=== PATIENT | male | born 1945 | race Caucasian/White ===

== ENCOUNTER 2016-03-31 12:34 | Outpatient (CLI) | payer MEDICARE | END 2016-03-31 12:35 | disposition home or self-care (01) | DX: M25.562 Pain in left knee (principal) ==

== ENCOUNTER 2016-04-10 08:27 | Outpatient (CLI) | payer MEDICARE | END 2016-04-10 08:28 | disposition home or self-care (01) | DX: M46.07 Spinal enthesopathy, lumbosacral region (principal); M51.26 Other intervertebral disc displacement, lumbar region; M51.36 Other intervertebral disc degeneration, lumbar region; M16.12 Unilateral primary osteoarthritis, left hip; M47.9 Spondylosis, unspecified; M77.8 Other enthesopathies, not elsewhere classified ==

== ENCOUNTER 2016-04-10 09:13 | Outpatient (CLI) | payer MEDICARE | END 2016-04-10 09:14 | disposition home or self-care (01) | DX: M19.072 Primary osteoarthritis, left ankle and foot (principal) ==

== ENCOUNTER 2016-04-30 10:41 | Outpatient (CLI) | payer MEDICARE | END 2016-04-30 10:42 | disposition home or self-care (01) | DX: M16.12 Unilateral primary osteoarthritis, left hip (principal); M24.852 Other specific joint derangements of left hip, not elsewhere classified; R60.0 Localized edema ==

== ENCOUNTER 2016-08-16 08:04 | Emergency (ER) | payer MEDICARE ==
[2016-08-16] MEDS ORDERED: ONDANSETRON 4 MG/2 ML VIAL IVP STA (08:21)
[2016-08-16] MEDS ORDERED: MORPHINE 2 MG/ML SYRINGE IVP STA ×3 (08:21→10:10)
[2016-08-16] MEDS ORDERED: ASPIRIN CHEW 81 MG TABLET PO STA (08:21)
[2016-08-16] MEDS ORDERED: NITROGLYCERIN SL 0.4 MG TABLET SL STA ×2 (08:21→08:48)
--- NOTE | 2016-08-16 08:26 | ED Physician Documentation ---
PD HPI CHEST PAIN - Stated complaint Stated Complaint: CHEST PAIN - Chief complaint Chief Complaint: Cardiac - Additional information Additional information: hx from pt 70 male hx aortic valve replacement [facility] 2013 and RCA stent at [place] in [place] 5 yr ago also HTN lipids DM chest pain for 4 days, jaw, ant jaw line, ant neck and left arm pain and left upper back + soa and diaphoresis no NV no abd pain no leg swelling Review of Systems Constitutional: reports: Sweats. denies: Fever, Chills Cardiac: reports: Chest pain / pressure Respiratory: reports: Dyspnea GI: denies: Vomiting Musculoskeletal: denies: Extremity swelling Endocrine: denies: Easy bruising / bleeding Immunocompromised: denies: Immunocompromised PD PAST MEDICAL HISTORY - Present Medications Home Medications: Ambulatory Orders Medication Instructions Recorded Confirmed Aspirin [Adult Low Dose Aspirin EC] 81 mg PO DAILY 08/16/16 08/16/16 Atorvastatin [Lipitor] 0 mg PO DAILY 08/16/16 08/16/16 Losartan [Cozaar] 0 mg PO DAILY 08/16/16 08/16/16 Metoprolol Tartrate 0 mg PO DAILY 08/16/16 08/16/16 Syring-Needl,Disp,Insul,0.3 ml 0 units SQ DAILY 08/16/16 08/16/16 [Insulin Syringe] metFORMIN [Glucophage] 0 mg PO DAILY 08/16/16 08/16/16 - Allergies Allergies/Adverse Reactions: Allergies Allergy/AdvReac Type Severity Reaction Status Date / Time No Known Drug Allergies Allergy Verified 08/16/16 08:12 PD ED PE NORMAL - Vitals Vital signs reviewed: Yes - General General: Alert and oriented X 3 - HEENT HEENT: PERRL - Neck Neck: Supple, no meningeal sign - Cardiac Cardiac: RRR. No: No murmur (+ murmur not new per pt) - Respiratory Respiratory: No respiratory distress, Clear bilaterally - Abdomen Abdomen: Soft, Non tender - Derm Derm: Normal color - Extremities Extremities: No deformity, No edema - Neuro Neuro: Alert and oriented X 3 Results - Vitals Vitals: Vital Signs - 24 hr 08/16/16 08/16/16 08/16/16 08:10 08:30 08:50 Temperature 36.6 C Heart Rate 79 89 76 Respiratory 14 15 15 Rate Blood Pressure 179/90 H 177/87 H 82/45 L O2 Saturation 100 95 92 06/18/17 06/18/17 06/18/17 08:54 08:56 08:57 Temperature Heart Rate 71 76 78 Respiratory 16 16 16 Rate Blood Pressure 82/45 L 92/55 L 103/67 O2 Saturation 94 91 L 95 08/16/16 08/16/16 08/16/16 09:03 09:18 09:41 Temperature Heart Rate 77 69 71 Respiratory 16 16 16 Rate Blood Pressure 151/87 H 155/80 H 165/88 H O2 Saturation 97 98 97 08/16/16 10:00 Temperature Heart Rate 76 Respiratory 16 Rate Blood Pressure 144/92 H O2 Saturation 97 Oxygen O2 Source Nasal cannula Oxygen Flow Rate 2 - EKG (time done) 0833 Rate: Rate (enter#) (83) Rhythm: NSR Intervals: Normal OK Ischemia: ST elevation c/w ischemia (inferior), Q waves (developing inferior Q waves) Compare to prior EKG: Old EKG unavailable - Labs Labs: Laboratory Tests 08/16/16 08/16/16 08/16/16 08:30 08:30 08:30 WBC 7.9 RBC 5.70 Hgb 16.1 Hct 47.5 MCV 83.3 MCH 28.3 MCHC 34.0 RDW 12.9 Plt Count 133 MPV 9.4 Neut # 5.2 Lymph # 1.7 [place] # 0.6 Eos # 0.3 Baso # 0.1 Absolute Nucleated RBC 0.00 Nucleated RBCs 0.0 Sodium 135 Potassium 3.9 Chloride 99 L Carbon Dioxide 24 Anion Gap 12.0 BUN 23 H Creatinine 1.1 Estimated GFR (MDRD) 66 L Glucose 330 H Calcium 9.7 Total Bilirubin 1.3 H AST 28 ALT 34 Alkaline Phosphatase 52 Troponin I 0.04 Total Protein 7.5 Albumin 4.1 Globulin 3.4 Albumin/Globulin Ratio 1.2 Lipase 29 - Rads (name of study) CXR Radiology: See rad report (prior sternotomy for valve, aortic knob tight, no cap or effusion) PD MEDICAL DECISION MAKING - ED course ED course: subacute inferior STEMI -4 days of sx - developing Q waves called [facility] where pt cardio group is Dr Starkey accepts, [facility] en route pt given asa nitro morphine zofran lopressor heparin (after CXR - pt with aortic valve repair inc risk for dissection) given inf STEMI, rechecked pt after one nitro (still having pain and still very hypertensive and HR 90) gave lopressor and rechecked pt (still hypertensive HR 80s still having pain) gave 2nd nitro and BP dropped to 82 - gave IVF and held further nitro and lopressor - pt recovered quickly and BP 152 now [facility] en route blood sugar noted - pt did not take meds today - will recheck after IVF labs resulted shortly prior to departure - surprisingly trop is neg - but sx are very c/w ACS and EKG does show ST elev - no cardio services or even stress testing available at [facility] at this time, 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
[2016-08-16] MEDS ORDERED: MORPHINE 2 MG/ML SYRINGE ONE ×3 (08:29→10:07)
[2016-08-16] MEDS ORDERED: ASPIRIN CHEW 81 MG TABLET ONE (08:29)
[2016-08-16] MEDS ORDERED: NITROGLYCERIN SL 0.4 MG TABLET SL ONE (08:30)
[2016-08-16] MEDS ORDERED: ONDANSETRON 4 MG/2 ML VIAL ONE (08:30)
[2016-08-16] MEDS ORDERED: METOPROLOL 5 MG/5 ML VIAL IVP ONE (08:33)
[2016-08-16] MEDS ORDERED: METOPROLOL 5 MG/5 ML VIAL IVP STA (08:35)
[2016-08-16] MEDS ORDERED: HEPARIN 25,000 UNITS/500 ML 500 ML IV STA (08:39)
[2016-08-16] MEDS ORDERED: HEPARIN 5,000 UNIT/ML VIAL IVP ONE (08:39)
[2016-08-16] MEDS ORDERED: HEPARIN 25,000 UNITS/500 ML 500 ML IV ONE (08:43)
[2016-08-16] MEDS ORDERED: HEPARIN 5,000 UNIT/ML VIAL ONE (08:43)
[2016-08-16 08:45] LABS: BASOPHILS # (AUTO) 0.1 10^3/uL (0.0-0.1); EOSINOPHILS # (AUTO) 0.3 10^3/uL (0.0-0.7); HGB - HEMOGLOBIN 16.1 g/dL (14.0-18.0); LYMPHOCYTES # (AUTO) 1.7 10^3/uL (1.5-3.5); MEAN CORPUSCULAR HEMOGLOBIN 28.3 pg (27.0-31.0); MONOCYTES # (AUTO) 0.6 10^3/uL (0.0-1.0); NEUTROPHILS # (AUTO) 5.2 10^3/uL (1.5-6.6); UNCORRECTED WHITE BLOOD COUNT 7.9 x10^3/uL; WHITE BLOOD COUNT 7.9 x10^3/uL (4.8-10.8)
[2016-08-16 08:48] LABS: BASOPHILS % (AUTO) 1.2 %; EOSINOPHILS % (AUTO) 3.4 %; HCT - HEMATOCRIT 47.5 % (42.0-52.0); LYMPHOCYTES % (AUTO) 21.5 %; MEAN CORPUSCULAR VOLUME 83.3 fL (80.0-94.0); MEAN PLATELET VOLUME 9.4 fL (7.4-11.4); MONOCYTES % (AUTO) 7.9 %; RED CELL DISTRIBUTION WIDTH 12.9 % (12.0-15.0)
[2016-08-16 08:51] LABS: ALBUMIN/GLOBULIN RATIO 1.2 (1.0-2.2); BILIRUBIN,TOTAL 1.3 mg/dL (0.2-1.0); CALCIUM 9.7 mg/dL (8.5-10.3); CREATININE 1.1 mg/dL (0.6-1.2); POTASSIUM 3.9 mmol/L (3.5-5.0); TOTAL PROTEIN 7.5 g/dL (6.7-8.2)
[2016-08-16] MEDS ORDERED: SODIUM CHLORIDE 0.9% 1,000 ML IV ONE (08:52)
--- NOTE | 2016-08-16 08:54 | XRAY Preliminary Report ---
Exam: XR Chest 1 View IMPRESSION: New borderline to mild cardiomegaly without new pulmonary opacity or acute cardiopulmonar y process visualized. [facility] SITE ID: [id number]
--- NOTE | 2016-08-16 08:56 | XRAY Report ---
EXAM: CHEST RADIOGRAPHY EXAM DATE: 08/16/2016 08:39 AM. CLINICAL HISTORY: Chest pain for 5 days COMPARISON: 12/26/2015. TECHNIQUE: 1 view. FINDINGS: Lungs/Pleura: No new focal opacities evident. No pleural effusion. No pneumothorax. The slightly elev ated right hemidiaphragm is again noted, similar to the prior exam. Mediastinum: New borderline to mild cardiomegaly. Other: Status post sternotomy again noted. IMPRESSION: New borderline to mild cardiomegaly without new pulmonary opacity or acute cardiopulmonar y process visualized. [facility] Referring Provider Line: [phone] SITE ID: [id number]
[2016-08-16 10:05] VITALS: BP 144/92
== END 2016-08-16 10:19 | disposition short-term general hospital (02) ==
LOC: ED 08:04
DX: I21.3 ST elevation (STEMI) myocardial infarction of unspecified site (principal); I10 Essential (primary) hypertension; Z95.2 Presence of prosthetic heart valve; Z79.82 Long term (current) use of aspirin; E11.9 Type 2 diabetes mellitus without complications; Z79.84 Long term (current) use of oral hypoglycemic drugs
CPT/HCPCS: 36415; 71010; 80053; 83690; 84484; 85025; 93005; 96374; 96375; 96376; 99284; 99285; A9270

== ENCOUNTER 2016-08-16 10:22 | Outpatient (CLI) | payer MEDICARE | END 2016-08-16 10:23 | disposition short-term general hospital (02) | LOC: EMS 10:22 | PROVIDERS: ATTEND Surgery | DX: I21.3 ST elevation (STEMI) myocardial infarction of unspecified site (principal) | CPT/HCPCS: A0425; A0427 ==

== ENCOUNTER 2018-05-29 10:03 | Emergency (ER) | payer MEDICARE ==
--- NOTE | 2018-05-29 10:21 | ED Physician Documentation ---
PD HPI FOCAL NEURO - Stated complaint Stated Complaint: POSS STROKE - Chief complaint Chief Complaint: Neuro - History obtained from History obtained from: Patient - History of Present Illness Timing - onset: Today, Last night (He awoke during the night to go the bathroom and did drink a glass of water and felt that he was unable to swallow appropriately and dribbled from the left side of his mouth. He denied any trouble walking or holding the cup. This morning when awoke he noticed the left side of his face was droopy and weak and he is unable to whistle or puff his cheeks symmetrically. Still did not notice any weakness of his arm or leg.) Timing - duration: Hours Timing - details: Gradual onset, Still present Weakness: Face, Left. No: Arm, Hand, Leg, Foot Numbness: No: Face, Arm, Hand, Leg, Foot Associated symptoms: Headache (some on left for 2-3 days). No: Nausea / vomiting, Syncope Contributing factors: positive: Other (has family in [place] and visited there last summer, with some hiking but no camping. Did not have to pull ticks off nor have any unexplained rash.). negative: Anticoagulated Baseline status: positive: A&OX3, ambulatory, indep Similar symptoms before: Has not had sx before Recently seen: Not recently seen Review of Systems Constitutional: denies: Fever, Chills, Myalgias Nose: denies: Rhinorrhea / runny nose, Congestion Skin: denies: Rash Musculoskeletal: reports: Extremity pain (left anterior thigh down to knee for many months.). denies: Joint pain PD PAST MEDICAL HISTORY - Past Medical History Cardiovascular: Hypertension, High cholesterol, [place], Valve disorder Endocrine/Autoimmune: Type 2 diabetes - Past Surgical History Past Surgical History: Yes Cardiovascular: Coronary stent - Present Medications Home Medications: Ambulatory Orders Medication Instructions Recorded Confirmed Aspirin [Adult Low Dose Aspirin EC] 81 mg PO DAILY 08/16/16 08/16/16 Atorvastatin [Lipitor] 40 mg PO DAILY 08/16/16 08/16/16 Losartan [Cozaar] 0 mg PO BID 08/16/16 08/16/16 Metoprolol Tartrate 50 mg PO BID 08/16/16 08/16/16 Syring-Needl,Disp,Insul,0.3 ml 0 units SQ DAILY 08/16/16 08/16/16 [Insulin Syringe] metFORMIN [Glucophage] 500 mg PO DAILY 08/16/16 08/16/16 Acyclovir 400 mg PO 5XD #25 tablet 05/29/18 Clopidogrel [Plavix] 75 mg PO DAILY 05/29/18 Dexamethasone [Decadron] 4 mg PO DAILY #5 tablet 05/29/18 amLODIPine [Norvasc] 0 mg 05/29/18 - Allergies Allergies/Adverse Reactions: Allergies Allergy/AdvReac Type Severity Reaction Status Date / Time No Known Drug Allergies Allergy Verified 05/29/18 10:09 - Social History Does the pt smoke?: No Smoking Status: Never smoker PD ED PE NORMAL - Vitals Vital signs reviewed: Yes - General General: Alert and oriented X 3, No acute distress, Well developed/nourished - HEENT HEENT: Ears normal, Moist mucous membranes, Pharynx benign, Other - Neck Neck: Supple, no meningeal sign, No adenopathy, No bruit - Cardiac Cardiac: RRR, No murmur - Respiratory Respiratory: Clear bilaterally - Abdomen Abdomen: Soft, Non tender - Derm Derm: Normal color, Warm and dry - Extremities Extremities: No tenderness to palpate, Normal ROM s pain - Neuro Neuro: Alert and oriented X 3, No sensory deficit, Normal speech. No: skeiner 2-12 intact (left facial weakness with slight persistent eye opening when closes eye. There is weakness of the forehead as well on the left with less prominent forehead creases on left.) Results - Vitals Vitals: Vital Signs - 24 hr 05/29/18 05/29/18 05/29/18 10:06 10:38 10:59 Temperature 36.0 C L Heart Rate 86 79 86 Respiratory 20 17 Rate Blood Pressure 162/87 H 155/83 H O2 Saturation 98 96 97 05/29/18 05/29/18 05/29/18 12:09 12:39 12:48 Temperature 36.7 C 36.3 C L Heart Rate 88 86 88 Respiratory 18 21 Rate Blood Pressure 133/89 H 139/95 H 139/95 H O2 Saturation 95 99 95 Oxygen O2 Source Room air - Labs Labs: Laboratory Tests 05/29/18 05/29/18 05/29/18 10:25 10:25 10:25 WBC 7.7 RBC 5.38 Hgb 16.3 Hct 44.7 MCV 83.2 MCH 29.5 MCHC 35.6 RDW 14.2 Plt Count 160 MPV 9.2 Neut # (Auto) 4.9 Lymph # (Auto) 1.9 [place] # (Auto) 0.6 Eos # (Auto) 0.3 Baso # (Auto) 0.1 Absolute Nucleated RBC 0.01 Nucleated RBC % 0.1 ESR 4 Sodium 130 L Potassium 4.2 Chloride 96 L Carbon Dioxide 25 Anion Gap 9.0 BUN 19 Creatinine 0.6 Estimated GFR (MDRD) 132 Glucose 340 H Calcium 9.5 Magnesium Total Bilirubin 0.8 AST 32 ALT 28 Alkaline Phosphatase 54 Total Protein 6.5 L Albumin 4.2 Globulin 2.5 Albumin/Globulin Ratio 1.7 Lipase 54 H 05/29/18 10:25 WBC RBC Hgb Hct MCV MCH MCHC RDW Plt Count MPV Neut # (Auto) Lymph # (Auto) [place] # (Auto) Eos # (Auto) Baso # (Auto) Absolute Nucleated RBC Nucleated RBC % ESR Sodium Potassium Chloride Carbon Dioxide Anion Gap BUN Creatinine Estimated GFR (MDRD) Glucose Calcium Magnesium 2.4 Total Bilirubin AST ALT Alkaline Phosphatase Total Protein Albumin Globulin Albumin/Globulin Ratio Lipase - Rads (name of study) head CT Radiology: Prelim report reviewed (clinically c/w facial nerve weakness. He has some headache on left, so got CT to eval for structure issues such as tumor, bleeding. Was not evaluating for vascular so did not do angio/etc. ) PD MEDICAL DECISION MAKING - ED course Complexity details: considered differential (left facial weakness only, with forehead involvement c/w facial nerve paresis. ), d/w patient Departure - Departure Disposition: 01 Home, Self Care Clinical Impression: Facial nerve palsy Condition: Stable Record reviewed to determine appropriate education?: Yes Instructions: ED [place] Palsy Follow-Up: Idris Guillermo MD [Primary Care Provider] - Prescriptions: Acyclovir 400 mg PO 5XD #25 tablet Dexamethasone [Decadron] 4 mg PO DAILY #5 tablet Comments: Stay well-hydrated. Continue usual medications. Take the Decadron steroid anti-inflammatory to reduce inflammation of the nerve. Check your sugars twice daily. If you find him going to high (mid 300s or 400s) then stop the steroids and that should correct over a day or so. If sugars will be a little higher than your usual on the steroids. They do provide benefit but I would stop them if your sugars are going too high. 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 Take acyclovir as directed for 5 days. The Lyme test is still pending and will result in a couple of days. Have your primary care follow-up on it. the natural progression for facial palsy will be persistence or increasing over a few days and may take several weeks to fully resolve. Hopefully yours will be shorter than that. You may need to use some eye moisturizing ointment or drops if your eye does not close completely. Modify your diet intake as needed for troubles sleeping and chewing. Discharge Date/Time: 05/29/18 12:50
[2018-05-29 11:30] LABS: BASOPHILS # (AUTO) 0.1 10^3/uL (0.0-0.1); BASOPHILS % (AUTO) 1.2 %; EOSINOPHILS # (AUTO) 0.3 10^3/uL (0.0-0.7); EOSINOPHILS % (AUTO) 3.5 %; HGB - HEMOGLOBIN 16.3 g/dL (14.0-18.0); LYMPHOCYTES # (AUTO) 1.9 10^3/uL (1.5-3.5); LYMPHOCYTES % (AUTO) 24.6 %; MEAN CORPUSCULAR VOLUME 83.2 fL (80.0-94.0); MEAN PLATELET VOLUME 9.2 fL (7.4-11.4); MONOCYTES # (AUTO) 0.6 10^3/uL (0.0-1.0); MONOCYTES % (AUTO) 7.8 %; NEUTROPHILS # (AUTO) 4.9 10^3/uL (1.5-6.6); NEUTROPHILS % (AUTO) 62.9 %; PLT - PLATELET COUNT 160 10^3/uL (130-450); RED BLOOD COUNT 5.38 10^6/uL (4.70-6.10); RED CELL DISTRIBUTION WIDTH 14.2 % (12.0-15.0); WHITE BLOOD COUNT 7.7 x10^3/uL (4.8-10.8)
--- NOTE | 2018-05-29 11:53 | CT Report ---
Reason: left facial weakness today Procedure Date: 05/29/2018 Accession Number: [id number] / [id number] Procedure: CT - HEAD WO CPT Code: FULL RESULT: EXAM: CT HEAD EXAM DATE: 05/29/2018 11:11 AM. CLINICAL HISTORY: Left facial weakness today. COMPARISON: None. TECHNIQUE: Multiaxial CT images were obtained from the foramen magnum to the vertex. Reformats: Sagittal and coronal. IV contrast: None. In accordance with CT protocol optimization, one or more of the following dose reduction techniques were utilized for this exam: automated exposure control, adjustment of mA and/or KV based on patient size, or use of iterative reconstructive technique. FINDINGS: The bilateral mastoid air cells are normally aerated. The imaged portions of the paranasal sinuses are normally aerated. There is no acute fracture of the calvaria. There is a punctate focus of calcification within the left central sulcus likely reflecting a small area of calcific plaquing. The mckeon-white differentiation remains distinct. There is enlargement of the lateral ventricles and the third ventricle, but not out of proportion to the concomitant enlargement of the cerebral sulci. There is a mild to moderate degree of generalized volume loss. IMPRESSION: 1. There is no acute intracranial abnormality. 2. There is mild to moderate generalized volume loss and mild chronic small-vessel ischemia. If the patient has persistent symptoms and further evaluation is desired, it can be obtained with MRI of the brain without contrast, as CT can be insensitive during the early stages of cerebral infarction.
[2018-05-29 12:05] LABS: MEAN CORPUSCULAR HEMOGLOBIN 29.5 pg (27.0-31.0); MEAN CORPUSCULAR HGB CONC 35.6 g/dL (32.0-36.0)
[2018-05-29 12:08] LABS: ALBUMIN 4.2 g/dL (3.2-5.5); ALBUMIN/GLOBULIN RATIO 1.7 (1.0-2.2); BILIRUBIN,TOTAL 0.8 mg/dL (0.2-1.0); CALCIUM 9.5 mg/dL (8.5-10.3); CREATININE 0.6 mg/dL (0.6-1.2); TOTAL PROTEIN 6.5 g/dL (6.7-8.2)
[2018-05-29] MEDS ORDERED: ACYCLOVIR 200 MG CAPSULE PO STA (12:34)
[2018-05-29] MEDS ORDERED: DEXAMETHASONE 10 MG/ML VIAL IVP STA (12:34)
[2018-05-29 12:40] VITALS: BP 139/95
[2018-06-02 16:02] LABS: 18 KD (IGG) BAND NON-REACTIVE; 23 KD (IGG) BAND NON-REACTIVE; 23 KD (IGM) BLOT NON-REACTIVE; 28 KD (IGG) BAND NON-REACTIVE; 30 KD (IGG) BAND NON-REACTIVE; 39 KD (IGG) BAND NON-REACTIVE; 39 KD (IGM) BLOT NON-REACTIVE; 41 KD (IGG) BAND REACTIVE; 41 KD (IGM) BLOT NON-REACTIVE; 45 KD (IGG) BAND NON-REACTIVE; 58 KD (IGG) BAND NON-REACTIVE; 66 KD (IGG) BAND REACTIVE; 93 KD (IGG) BAND REACTIVE
== END 2018-05-29 12:50 | disposition home or self-care (01) ==
LOC: ED 10:03
DX: G51.0 Bell's palsy (principal); I10 Essential (primary) hypertension; E11.9 Type 2 diabetes mellitus without complications; Z79.84 Long term (current) use of oral hypoglycemic drugs; Z79.02 Long term (current) use of antithrombotics/antiplatelets; Z79.82 Long term (current) use of aspirin
CPT/HCPCS: 36415; 70450; 80053; 83690; 83735; 85025; 85651; 86617; 93005; 96374; 99283; 99284; A9270

== ENCOUNTER 2019-01-30 10:57 | Outpatient (CLI) | payer MEDICARE ==
--- NOTE | 2019-01-30 13:20 | XRAY Report ---
Reason: SHORTNESS OF BREATH Procedure Date: 01/30/2019 Accession Number: [id number] / [id number] Procedure: XR - Chest 2 View X-Ray CPT Code: 93585 Final Report FULL RESULT: EXAM: CHEST RADIOGRAPHY EXAM DATE: 01/30/2019 11:13 AM. CLINICAL HISTORY: SHORTNESS OF BREATH. COMPARISON: 08/16/2016. TECHNIQUE: 2 views. FINDINGS: Lungs/Pleura: No focal opacities evident. No pleural effusion. No pneumothorax. Normal volumes. Mediastinum: Post sternotomy wires again noted. Heart and mediastinal contours are unremarkable. Other: Minimal elevation of the right hemidiaphragm, stable. IMPRESSION: No acute process. [facility]
== END 2019-01-30 10:58 | disposition home or self-care (01) ==
LOC: DI 10:57
PROVIDERS: ATTEND Physician Assistant
DX: R06.02 Shortness of breath (principal)
CPT/HCPCS: 71046

== ENCOUNTER 2019-04-21 17:23 | Emergency (ER) | payer MEDICARE ==
[2019-04-21 17:47] LABS: BASOPHILS # (AUTO) 0.1 10^3/uL (0.0-0.1); BASOPHILS % (AUTO) 1.4 %; EOSINOPHILS # (AUTO) 0.4 10^3/uL (0.0-0.7); EOSINOPHILS % (AUTO) 4.8 %; HGB - HEMOGLOBIN 16.7 g/dL (14.0-18.0); LYMPHOCYTES # (AUTO) 2.1 10^3/uL (1.5-3.5); MEAN CORPUSCULAR HEMOGLOBIN 29.6 pg (27.0-31.0); MEAN CORPUSCULAR HGB CONC 34.9 g/dL (32.0-36.0); MEAN CORPUSCULAR VOLUME 84.8 fL (80.0-94.0); MONOCYTES # (AUTO) 0.6 10^3/uL (0.0-1.0); NEUTROPHILS # (AUTO) 4.5 10^3/uL (1.5-6.6); NEUTROPHILS % (AUTO) 58.5 %; PLT - PLATELET COUNT 162 10^3/uL (130-450); RED BLOOD COUNT 5.65 10^6/uL (4.70-6.10); RED CELL DISTRIBUTION WIDTH 13.1 % (12.0-15.0); WHITE BLOOD COUNT 7.6 x10^3/uL (4.8-10.8)
[2019-04-21 18:10] LABS: ALBUMIN 4.4 g/dL (3.2-5.5); ALBUMIN/GLOBULIN RATIO 1.5 (1.0-2.2); BILIRUBIN,TOTAL 0.7 mg/dL (0.2-1.0); CALCIUM 10.1 mg/dL (8.5-10.3); CREATININE 1.2 mg/dL (0.6-1.2); TOTAL PROTEIN 7.4 g/dL (6.7-8.2)
[2019-04-21] MEDS ORDERED: ASPIRIN CHEW 81 MG TABLET PO STA (18:51)
--- NOTE | 2019-04-21 18:51 | XRAY Report ---
Reason: Chest pain Procedure Date: 04/21/2019 Accession Number: [id number] / [id number] Procedure: XR - Chest 1 View X-Ray CPT Code: 46467 Final Report FULL RESULT: EXAM: CHEST RADIOGRAPHY EXAM DATE: 04/21/2019 06:18 PM. CLINICAL HISTORY: Chest pain. COMPARISON: CHEST 2 VIEW 01/30/2019 11:01 AM. TECHNIQUE: 1 view. FINDINGS: Lungs/Pleura: No focal opacities evident. No pleural effusion. No pneumothorax. Mediastinum: Status post CABG with stable postsurgical changes in cardiomediastinal silhouette. Within exam limitations, the cardiomediastinal contour is normal. Other: None. IMPRESSION: No acute cardiopulmonary process. [facility]
--- NOTE | 2019-04-21 18:54 | ED Physician Documentation ---
History of Present Illness - Stated complaint Stated Complaint: CP - Chief complaint Chief Complaint: Cardiac - History obtained from History obtained from: Patient - History of Present Illness Timing: Today, How many hours ago (2) Pain level max: 4 Pain level now: 3 - Additonal information Additional information: 73-year-old male presents the emergency department with chest pain intermittently for the past 2 weeks. He states it is normally exertional and resolves with rest, however today the chest pain has been constant for the past 2 hours. Nothing makes it better or worse. Feels like a pressure. Nonradiating. Slightly short of breath. Slightly dizzy. No nausea or vomiting. Does not take nitroglycerin at home. His last cardiac stent was in December at [facility] in [place] with Dr. Mei. Review of Systems Ten Systems: 10 systems reviewed and negative Constitutional: denies: Fever, Chills Nose: denies: Rhinorrhea / runny nose, Congestion Throat: denies: Sore throat Cardiac: denies: Palpitations Respiratory: denies: Cough GI: denies: Vomiting, Diarrhea : denies: Dysuria Skin: denies: Rash Musculoskeletal: denies: Neck pain, Back pain Neurologic: denies: Headache PD PAST MEDICAL HISTORY - Past Medical History Cardiovascular: Hypertension, High cholesterol, [place], Valve disorder Endocrine/Autoimmune: Type 2 diabetes - Past Surgical History Past Surgical History: Yes Cardiovascular: Coronary stent - Present Medications Home Medications: Ambulatory Orders Medication Instructions Recorded Confirmed Aspirin [Adult Low Dose Aspirin EC] 81 mg PO DAILY 08/16/16 04/21/19 Atorvastatin [Lipitor] 40 mg PO DAILY 08/16/16 04/21/19 Losartan [Cozaar] 0 mg PO BID 08/16/16 04/21/19 Metoprolol Tartrate 50 mg PO BID 08/16/16 04/21/19 metFORMIN [Glucophage] 500 mg PO DAILY 08/16/16 04/21/19 Clopidogrel [Plavix] 75 mg PO DAILY 05/29/18 04/21/19 Insulin 70/30 Human [Humulin 70-30 0 unit 04/21/19 Vial] - Allergies Allergies/Adverse Reactions: Allergies Allergy/AdvReac Type Severity Reaction Status Date / Time No Known Drug Allergies Allergy Verified 04/21/19 17:31 - Social History Does the pt smoke?: No Smoking Status: Never smoker Does the pt drink ETOH?: No - Immunizations Immunizations are current?: Yes - POLST Patient has POLST: No PD ED PE NORMAL - Vitals Vital signs reviewed: Yes - General General: Alert and oriented X 3, No acute distress, Well developed/nourished - HEENT HEENT: PERRL, Moist mucous membranes - Neck Neck: Supple, no meningeal sign - Cardiac Cardiac: RRR, No murmur, Strong equal pulses - Respiratory Respiratory: No respiratory distress, Clear bilaterally - Abdomen Abdomen: Soft, Non tender, Non distended - Derm Derm: Warm and dry, No rash - Extremities Extremities: No edema, No calf tenderness / cord - Neuro Neuro: Alert and oriented X 3 - Psych Psych: Normal mood, Normal affect Results - Vitals Vitals: Vital Signs - 24 hr 04/21/19 04/21/19 04/21/19 17:31 19:20 19:57 Temperature 36.7 C 36.5 C Heart Rate 83 80 68 Respiratory 16 19 21 Rate Blood Pressure 170/80 H 162/79 H 122/70 O2 Saturation 96 93 94 04/21/19 20:32 Temperature 36.7 C Heart Rate 69 Respiratory 15 Rate Blood Pressure 141/80 H O2 Saturation 96 Oxygen O2 Source Room air - EKG (time done) 1735 Rate: Rate (enter#) (72) Rhythm: NSR [place]: Normal Intervals: Normal CA QRS: Normal Ischemia: Q waves, Non specific changes Computer interpretation: Agree with computer - Labs Labs: Laboratory Tests 04/21/19 04/21/19 04/21/19 17:44 17:44 17:44 WBC 7.6 RBC 5.65 Hgb 16.7 Hct 47.9 MCV 84.8 MCH 29.6 MCHC 34.9 RDW 13.1 Plt Count 162 MPV 11.0 Neut # (Auto) 4.5 Lymph # (Auto) 2.1 [place] # (Auto) 0.6 Eos # (Auto) 0.4 Baso # (Auto) 0.1 Absolute Nucleated RBC 0.00 Nucleated RBC % 0.0 Sodium 135 Potassium 3.9 Chloride 100 L Carbon Dioxide 25 Anion Gap 10.0 BUN 27 H Creatinine 1.2 Estimated GFR (MDRD) 59 L Glucose 246 H Calcium 10.1 Magnesium Total Bilirubin 0.7 AST 26 ALT 33 Alkaline Phosphatase 43 Troponin I High Sens 37.0 H* B-Natriuretic Peptide Total Protein 7.4 Albumin 4.4 Globulin 3.0 Albumin/Globulin Ratio 1.5 Lipase 49 04/21/19 04/21/19 04/21/19 17:44 17:44 19:04 WBC RBC Hgb Hct MCV MCH MCHC RDW Plt Count MPV Neut # (Auto) Lymph # (Auto) [place] # (Auto) Eos # (Auto) Baso # (Auto) Absolute Nucleated RBC Nucleated RBC % Sodium Potassium Chloride Carbon Dioxide Anion Gap BUN Creatinine Estimated GFR (MDRD) Glucose Calcium Magnesium 2.5 Total Bilirubin AST ALT Alkaline Phosphatase Troponin I High Sens 33.4 H* B-Natriuretic Peptide 122 H Total Protein Albumin Globulin Albumin/Globulin Ratio Lipase - Rads (name of study) cxr Radiology: Prelim report reviewed, EMP read contemporaneously, See rad report (No acute cardiopulmonary process. ) PD MEDICAL DECISION MAKING - ED course Complexity details: reviewed results, re-evaluated patient, considered differential, d/w patient, d/w design center consultant ED course: 73-year-old male presents to the emergency department with concern for unstable and accelerating angina based on history. Discussed the case with Dr. Redd, cardiology at [facility] in [place] who recommends heparin drip and transfer to the hospitalist for further evaluation. Discussed the case with Dr. Bradford, hospitalist at [facility] who graciously accepts in transfer. Patient is pain-free after single nitroglycerin here. Maintained on a heparin drip. Last cardiac stent was December 2018. COBRA forms completed This document was made in part using voice recognition software. While efforts are made to proofread this document, sound alike and grammatical errors may occur. Departure - Departure Disposition: 02 Transfer Acute Care Hosp Clinical Impression: Unstable angina Condition: Stable
[2019-04-21] MEDS: NITROGLYCERIN SL 0.4 MG TABLET SL STA ×2 (19:10→19:20)
[2019-04-21] MEDS ORDERED: HEPARIN 25000UNITS/500ML (D5W) 25,000 UNIT/500 ML BAG IV STA (20:25)
[2019-04-21] MEDS ORDERED: HEPARIN 5,000 UNIT/ML VIAL IVP STA (20:25)
[2019-04-21 22:36] VITALS: BP 163/90
== END 2019-04-21 22:37 | disposition short-term general hospital (02) ==
LOC: ED 17:23
DX: I25.110 Atherosclerotic heart disease of native coronary artery with unstable angina pectoris (principal); I10 Essential (primary) hypertension; E78.00 Pure hypercholesterolemia, unspecified; I38 Endocarditis, valve unspecified; E11.9 Type 2 diabetes mellitus without complications; Z95.5 Presence of coronary angioplasty implant and graft; I25.2 Old myocardial infarction; Z79.82 Long term (current) use of aspirin; Z79.4 Long term (current) use of insulin
CPT/HCPCS: 36415; 71045; 80053; 83690; 83735; 83880; 84484; 85025; 93005; 96374; 99285; A9270

== ENCOUNTER 2019-04-21 22:49 | Outpatient (CLI) | payer MEDICARE | END 2019-04-21 22:50 | disposition short-term general hospital (02) | LOC: EMS 22:49 | PROVIDERS: ATTEND Surgery | DX: R07.9 Chest pain, unspecified (principal) | CPT/HCPCS: A0425; A0426 ==

== ENCOUNTER 2020-09-03 08:58 | Outpatient (CLI) | payer MEDICARE ==
--- NOTE | 2020-09-03 10:01 | XRAY Report ---
PROCEDURE: Chest 2 View X-Ray INDICATIONS: ATHSCL HEART DISEASE OF [place] CORONARY ARTERY W/O TECHNIQUE: 2 view(s) of the chest. COMPARISON: None. FINDINGS: Surgical changes and devices: Median sternotomy changes. Lungs and pleura: No pleural effusions or pneumothorax. Lungs are clear. Mediastinum: Mediastinal contours are normal. Heart size is normal. Bones and chest wall: No suspicious bony abnormalities. Soft tissues appear unremarkable. IMPRESSION: No acute cardiopulmonary process demonstrated radiographically. Reviewed by: Travon Whiting MD on 09/03/2020 10:00 AM PDT Approved by: Travon Whiting MD on 09/03/2020 10:00 AM PDT Station ID: [id number]
== END 2020-09-03 08:59 | disposition home or self-care (01) ==
LOC: DI 08:58
PROVIDERS: ATTEND Internal Medicine Cardiovascular Disease
DX: R06.00 Dyspnea, unspecified (principal); I25.10 Atherosclerotic heart disease of native coronary artery without angina pectoris

== ENCOUNTER 2023-08-10 11:41 | Outpatient (CLI) | payer MEDICARE ==
--- NOTE | 2023-08-10 13:04 | XRAY Report ---
PROCEDURE: Chest 2V INDICATIONS: CORONARY ARTERY DISEASE INVOLCING [place] HEART TECHNIQUE: 2 views of the chest were acquired. COMPARISON: 09/03/2020 FINDINGS: Surgical changes and devices: Sternotomy wires and aortic valve device Lungs and pleura: Low lung volumes. No dense consolidation or pleural effusion Mediastinum: Normal heart size Bones and chest wall: Degenerative changes IMPRESSION: No acute radiographic abnormality. Reviewed by: Timothy Polanco MD on 08/10/2023 1:03 PM PDT Approved by: Timothy Polanco MD on 08/10/2023 1:03 PM PDT Station ID: [id number]
== END 2023-08-10 11:42 | disposition home or self-care (01) ==
LOC: DI 11:41
PROVIDERS: ATTEND Internal Medicine Cardiovascular Disease
DX: I25.10 Atherosclerotic heart disease of native coronary artery without angina pectoris (principal); I35.0 Nonrheumatic aortic (valve) stenosis; R06.09 Other forms of dyspnea